=== PATIENT | male | born 1950 | race Two or more races ===

== ENCOUNTER 2024-03-12 19:18 | Emergency (ER) | payer OTHER ==
[~2024-03-12] VITALS: Ht 180.3 cm; Wt 90.7 kg
[2024-03-12] MEDS ORDERED: SIMVASTATIN20 MG PO (19:48)
[2024-03-12] MEDS ORDERED: ZIPSOR25 MG (19:48)
[2024-03-12] MEDS ORDERED: FAMOtidine 10 MG/ML (4ML VIAL) IV PUSH STA (21:10)
[2024-03-12 21:45] LABS: HEMATOCRIT 43.2 % (39.0-48.0); HEMOGLOBIN 15.2 g/dL (13-16.00); MEAN CELL VOLUME 93.5 fL (80.0-100.00); MEAN CORPUSCULAR HEMOGLOBIN 32.8 pg (27.00-32.0); MEAN CORPUSCULAR HGB CONC 35.1 g/dl (32.0-36.0); PLATELET COUNT 201 K/uL (150-450); RED BLOOD COUNT 4.62 M/uL (4.00-6.00); RED CELL DISTRIBUTION WIDTH 13.1 % (11.5-14.5)
[2024-03-12 22:01] LABS: ALBUMIN 4.2 gm/dL (3.4-5.0); BILIRUBIN TOTAL 0.64 mg/dL (0.3-1.2); CALCIUM 9.4 mg/dL (8.5-10.1); CREATININE SERUM 0.81 mg/dL (0.70-1.30); GFR 93.67; GLOBULINA 3.3 G/DL (2.4-3.5); POTASSIUM 3.91 mEq/L (3.5-5.1); TOTAL PROTEIN 7.5 gm/dL (6.4-8.2)
== END 2024-03-12 22:19 | disposition home or self-care (01) ==
LOC: ER 19:20
PROVIDERS: General Practice
DX: R10.11 Right upper quadrant pain (principal); Z88.0 Allergy status to penicillin
CPT/HCPCS: 36415; 96365; 99282; J3490